=== PATIENT | female | born 1960 | race Caucasian/White ===

== ENCOUNTER → 2023-09-27 06:28 | Day surgery (SDC) | payer MEDICARE, SELFPAY | LOC: GI 06:28 | PROVIDERS: ATTENDING PHYSICIAN Internal Medicine | DX: Z12.11 Encounter for screening for malignant neoplasm of colon (principal); K64.9 Unspecified hemorrhoids; K57.30 Diverticulosis of large intestine without perforation or abscess without bleeding; Z86.010 Personal history of colon polyps; D12.2 Benign neoplasm of ascending colon | CPT/HCPCS: 45380; 88305 ==

== ENCOUNTER → 2024-03-28 07:56 | Outpatient (REF) | payer MEDICARE, SELFPAY | LOC: WDC 07:56 | PROVIDERS: ATTENDING PHYSICIAN Obstetrics & Gynecology; FAMILY PHYSICIAN Family Medicine | DX: Z12.31 Encounter for screening mammogram for malignant neoplasm of breast (principal) | CPT/HCPCS: 77063; 77067 ==

== ENCOUNTER → 2024-08-09 13:07 | Outpatient (REF) | payer MEDICARE, SELFPAY | LOC: RAD 13:07 | PROVIDERS: ATTENDING PHYSICIAN Physician Assistant; FAMILY PHYSICIAN Family Medicine | DX: R05.3 Chronic cough (principal) | CPT/HCPCS: 71046 ==

== ENCOUNTER → 2024-11-01 09:57 | Outpatient (REF) | payer MEDICARE, SELFPAY | LOC: RAD 09:57 | PROVIDERS: ATTENDING PHYSICIAN Physician Assistant; FAMILY PHYSICIAN Family Medicine | DX: M25.551 Pain in right hip (principal) | CPT/HCPCS: 73502 ==

== ENCOUNTER 2024-12-17 02:08 | Observation (INO) | payer MEDICARE, SELFPAY ==
[2024-12-16 21:33] VITALS: BP 126/72
[2024-12-16 21:44] LABS: Hematocrit 35.7 % (37.0-47.0); Hemoglobin 12.4 g/dL (12.0-16.0); Mean Corp Hgb Conc. 34.7 g/dL (33.0-37.0); Mean Corpuscular Volume 81.7 fL (81.0-99.0); Nucleated Red Blood Cells % 0 %; Platelet Count 236 10^3/uL (130-400); Red Cell Dist. Width 13.2 % (11.5-14.5)
[2024-12-16 21:57] LABS: ALT (SGPT) 18 U/L (0-35); AST (SGOT) 21 U/L (14-36); Albumin 4.5 g/dl (3.5-5.0); Alkaline Phosphatase 65 U/L (38-126); Blood Urea Nitrogen 18 mg/dl (7-17); Calcium 9.5 mg/dl (8.4-10.2); Carbon Dioxide 23 mmol/L (22-30); Chloride 109 mmol/L (98-107); Glucose 101 mg/dl (70-99); INR 0.94; PT 12.9 Sec (11.4-14.6); Potassium 3.6 mmol/L (3.5-5.1); Sodium 138 mmol/L (135-145); Total Protein 7.0 g/dl (6.3-8.2); eGFR > 60.00
[2024-12-16 22:00] VITALS: BP 111/57
[2024-12-16 22:18] VITALS: BMI 30.4
--- NOTE | 2024-12-16 22:23 | EDRN ---
Around 1100 pt felt tightness in her sternum which progressed throughout the day. Pt ate half a wrap for lunch and noted her chest felt worse afterwards. Pt watching golf after eating a salad and had to pull her bra off because she felt pressure
in her sternum. Pt unable to get comfortable lying in recliner. Pain radiates to R shoulder blade. Pt took 81mg aspirin. On the way to the ED, pt vomited. Pt has had nausea, none now. Pt clearing her throat repeatedly and says she was started
on omeprazole for possible gerd however she has not noted an improvement yet. No diaphoresis. Tightness in chest is intermittent. No abd pain, fever/chills.
[2024-12-16 23:00] VITALS: BP 121/71
[2024-12-16 23:11] LABS: Troponin I < 0.012 ng/ml
[2024-12-16] MEDS: LOW STRENGTH ASPIRIN 243 MG PO (23:53)
[2024-12-16] MEDS: PROTONIX IV 40 MG IV (23:54)
[2024-12-17] VITALS (7 sets, daily range): BP systolic 103–126; BP diastolic 61–78; BMI 29.8
[2024-12-17 00:11] LABS: Lipase 75 U/L (23-300)
--- NOTE | 2024-12-17 00:43 | ED.GENMED ---
History of Present Illness
General
Chief Complaint: Chest Pain
Source: patient
Exam Limitations: none
Time Seen by Provider: 12/16/24 23:26
History of Present Illness
History of Present Illness:
64-year-old female recurrent episodes of chest pressure substernal throughout the day. Comes and goes last 10 to 15 minutes. No shortness of breath some nausea and vomiting. No shearing pain no pleuritic pain. Currently asymptomatic remote
history of positive troponin but with clean coronaries in 2019
Past History
Past History
ED Past Medical History: Hypercholesterolemia and Hypothyroidism
ED Past Surgical History: None
Social History
Tobacco: Non-smoker
Alcohol: Occasional
Drug: None
Personal: (Same sex partner)
Living: with family
Employment: Employed
Family History
Family History: CAD
Review of Systems
Review of Systems
All Other Systems: Not applicable
Phy Exam
Physical Exam
Physical Exam:
GENERAL: Alert and oriented in no apparent distress
EYE: Orbits normal.
NECK: Supple, no significant adenopathy.
ENT: Pharynx without erythema
CARDIAC: Regular rate and rhythm without any obvious murmurs.
LUNGS: Clear breath sounds,normal
ABDOMEN: Soft, without focal tenderness or distention
NEUROLOGICAL: Alert and oriented , grossly non-focal
SKIN: Warm and dry, no rash or lesion, no discoloration, skin intact.
MUSCULOSKELETAL: No edema,no deformity.Good color
PSYCH: Normal and appropriate interaction.
Scores
Heart Score for Chest Pain Patients
STEMI patient?: No
History: Moderately Suspicious
ECG: Normal
Age: >/= 65 years
Risk Factors: 1 or 2 Risk Factors
Troponin: </= Normal Limit
Heart Score for Chest Pain Patients: 4
Heart Score Risk: 20.3% MACE over next 6 weeks
Course
Orders/Labs/Results
Orders:
Orders
12/16/24 21:27
Electrocardiogram (*1) Urgent
Reason for Study: Chest Pain
EKG- Treatment ONCE
12/16/24 21:34
Cardiac Monitoring- Treatment ONCE
IV Insert/Care/Rem.- Treatment PRN
O2 Therapy [RESP] Urgent
Titrate/Wean O2 to maintain O2 sat greater than (%): 90
Special Instructions: Maintain sats >/=90%
Pulse Ox/spot Check [RESP] Urgent
Quantity: 1
Special Instructions: ON ROOM AIR
12/16/24 21:39
Complete Blood Count/With Diff Urgent
Comprehensive Metabolic Panel Urgent
D-Dimer Urgent
Comment: ADD ON
Lipase Urgent
Comment: ADD ON
Prothrombin Time Urgent
12/16/24 22:38
Troponin I Urgent
12/16/24 23:40
Add On- LAB Urgent
Tests Added?: lipase
Aspirin Chewable [Low Strength Aspirin] 324 mg PO NOW STA
Pantoprazole [Protonix IV] 40 mg IV NOW STA
12/16/24 23:52
Aspirin Chewable [Low Strength Aspirin] 243 mg PO NOW STA
12/17/24 00:00
CR Chest - 2 Views Urgent
Reason For Exam: cp
12/17/24 01:50
Admit/Transfer Patient As Directed
Co-Sign Provider:
Level of Care: Observation services
Assign to:: Telemetry
Physician / Group: Denice Liao
Diagnosis: Chest pain
Reason for Telemetry: Chest Pain syndromes
Date to Stop Telemetry: 12/19/24
Time to Stop Telemetry: 11:00
12/17/24 01:51
PRN Pain Medication Management As Directed
May give lesser potent ordered pain med per pt: Yes
preference::
Protocol:: Medication orders for pain may be administered in a
manner that supports deferring to patient preference
when the pt is:
- Requesting an ordered lesser potent pain medication.
Least to most potent pain medications are defined
as: acetaminophen < NSAID < tramadol < opioids
(morphine, oxycodone, hydromorphone).
- Requesting a lesser dose of the same medication IF
ORDERED.
- Requesting a less intrusive route of administration
if both routes are prescribed by the provider (PO <
IV).
12/17/24 01:53
Code Status As Directed
Resuscitation Status: Full Code
12/17/24 03:05
Mag Hydrox/Al Hydrox/Simeth [Maalox] 30 ml PO Q4HPRN PRN
Nitroglycerin Sublingual [Nitrostat (Sublingual)] 0.4 mg SL [id number] PRN
12/17/24 03:05
Add On- LAB Urgent
Tests Added?: D dimer with next troponin
Echo 2D MMode Color/Doppler Routine
Reason for Study: chest pain
CARDIOLOGY CONSULT Routine
Consulting Provider: Tripp Alcala
Was physician already notified: No
Reason for consult: chest pain
Consult Notification Routine
Specialty to Notify: Cardiology
Date consulting provider notified: 12/17/24
Time consulting provider notified: 08:23
Notified:: Provider
Activity As Directed
Activity Level: Out of Bed-Early Mobility
INT (Intravenous Needle Therapy) As Directed
Comment: maintain peripheral IV access
Intake/ Output As Directed
Frequency: Per unit guidelines
Vital Signs As Directed
Frequency: q4h
Weight As Directed
Frequency: Daily
DX Deep Vein Thrombosis Video Routine
12/17/24 03:54
Cardiovascular Evaluation IN AM
Complete Blood Count/No Diff IN AM
Comprehensive Metabolic Panel IN AM
Glycohemoglobin (HgbA1c) Routine
Troponin I Q3H
Comment: at admit & Q3H for 3 total including ED draws, obtain ECG with each level
12/17/24 Breakfast
Cholesterol Lowering
At Your Request: Full Participation
Cholesterol Lowering: Sodium, 2 Gram
Levothyroxine [Synthroid] 100 mcg PO DAILY @ 0600
12/17/24 07:50
Troponin I Q3H
Comment: at admit & Q3H for 3 total including ED draws, obtain ECG with each level
12/17/24 08:00
Atorvastatin [Lipitor] 40 mg PO DAILY
Pantoprazole [Protonix] 40 mg PO DAILY
12/17/24 09:05
Electrocardiogram (*1) Q6H
Reason for Study: Chest Pain
Comment: at admission and Q3H for total of 3, to be done with each troponin
12/17/24 15:05
Electrocardiogram (*1) Q6H
Reason for Study: Chest Pain
Comment: at admission and Q3H for total of 3, to be done with each troponin
12/17/24 18:00
Enoxaparin Sodium [Lovenox] 40 mg SC QPM
12/19/24 11:00
DC Protocol for Telemetry ONCE
Abnormal Lab Results
12/16/24
21:39
Hct 35.7 L %
(37.0-47.0)
Absolute Neuts (auto) 6.8 H 10^3/uL
(1.4-6.5)
Chloride 109 H mmol/L
(98-107)
BUN 18 H mg/dl
(7-17)
Glucose 101 H mg/dl
(70-99)
12/16/24 21:39
12/16/24 21:39
Vital Signs
Initial and Last Documented VS:
Initial Vital Signs
Temp Pulse Resp BP Pulse Ox
98.2 F 69 16 126/72 98
12/16/24 21:33 12/16/24 21:33 12/16/24 21:33 12/16/24 21:33 12/16/24 21:33
Last Documented Vital Signs
Temp Pulse Resp BP Pulse Ox
98.1 F 67 18 106/65 96
12/17/24 16:06 12/17/24 17:00 12/17/24 16:06 12/17/24 16:08 12/17/24 16:06
*Pulse Oximetry
SaO2: 96
Oxygen Mode of Delivery: Room air
Patient hypoxic: no (98)
*Critical Care Note
Total Time (30-74mins, 75-104mins- exclusive of procedures): Not Applicable
ED Attending Note
-
Portions of this chart may have been created with voice recognition software.� Occasional wrong word or��sound alike� substitutions may have occurred due to the inherent limitations of voice recognition software.
Discharge Plan
Departure
Patient Disposition: Admit
Date of Disposition: 12/17/24
Time of Disposition: 01:19
Presentation/result/management discussed w/ accepting MD/DO: Hospitalist
Discharge Problem:
Intermittent chest pain
Interventions
Interventions:
*Risk Screen - Suicide Last Done: 12/16/24 21:33
*General Assessment Last Done: 12/16/24 21:33
*Neglect/Abuse Screening Last Done: 12/16/24 21:33
*ED- Fall Risk Assessment Last Done: 12/16/24 22:40
*Nursing Disposition Last Done: 12/17/24 03:00
ED- Cardiac Assessment Last Done: 12/16/24 22:44
Discharge Date and Time
Discharge Date/Time: 12/17/24 03:00
--- NOTE | 2024-12-17 01:46 | HPS.HSE ---
Family Physician
-
Family Physician: NOT KNOW UNKNOWN - PT DOES
Chief Complaint
-
Chest pain
History of Present Illness
This is a 64-year-old female with past medical history of hypothyroid, hyperlipidemia who presents to the emergency department with episode of chest pain.
Patient reported that symptoms began earlier in the day yesterday with substernal achy pain that seem to subside. However in the evening at around 8 PM she started having substernal chest pressure with radiation to the right scapula but not to
the's or neck or jaws. It was not associated with any shortness of breath or diaphoresis. However on being transported to the emergency department she had an episode of vomiting. Patient reported that pain occurred while she was at rest. She had
no palpitations at the time. She denied any diaphoresis. She did not feel short of breath. She denies any lower extremity swelling. She has had no cough fevers or chills.
Patient reports a prior history of chest pain about 4 years ago when she had significant palpitations at that time. She had cardiac cath and was found to have clean coronaries. She has not had a stress test since then. She reports compliance with
her medications including atorvastatin and levothyroxine.
In the emergency department patient was afebrile, blood pressure was 120/65 with a pulse of 66 and she was satting 96% on room air.
ECG sinus and nonischemic.
CBC is currently unremarkable
Electrolytes BUN/creatinine were all within the normal range.
Chest x-ray was clear.
Initial troponin was 0.01
Medical History
Past Medical History
Past Medical History: Reports Hypercholesterolemia and Hypothyroidism
Past Surgical History: Reports Orthopedic
Social History
Tobacco: Non-smoker
Alcohol: Occasional
Drug: None
Living: With Family
Family History
Family History: CAD
Allergies / Home Medications
Allergies reflects when Allergies were last updated in [employer].
Home Medications with original date entered in [employer]
Allergy/Medication List:
Allergies
Allergy/AdvReac Type Severity Reaction Status Date / Time
cefuroxime axetil (From Allergy itching of Verified 12/16/24 22:19
Ceftin) hands
codeine (Codeine) Allergy itching & Verified 12/16/24 22:19
hives
orange juice Allergy Unknown Verified 12/16/24 22:19
whey Allergy Unknown Verified 12/16/24 22:19
amoxicillin trihydrate (From AdvReac diarrhea Verified 12/16/24 22:19
Augmentin)
Home Medications
glucosamine 750 kj-yphbymrnor-jle no.1 625 mg-C 30 qs-rkgh-qjgk tablet 1 ea PO DAILY 11/01/11
atorvastatin 40 mg tablet 40 mg PO DAILY 06/14/18
cholecalciferol (vitamin D3) 50 mcg (2,000 unit) tablet 3,000 unit PO DAILY 06/14/18
guselkumab 100 mg/mL subcutaneous pen injector (Tremfya Pen) 100 mg SC Q8W 12/16/24
levothyroxine 100 mcg tablet 100 mcg PO DAILY 12/16/24
lutein 10 mg tablet 10 mg PO DAILY 12/16/24
omeprazole 1 cap PO DAILY 12/16/24
Review of Systems
-
Constitutional: Reports No Symptoms
EENT: Reports No Symptoms
Respiratory: Reports No Symptoms
Cardiac: Reports Chest Pain
Abdomen/GI: Reports No Symptoms
: Reports No Symptoms
Musculoskeletal: Reports No Symptoms
Skin: Reports No Symptoms
Neurological: Reports No Symptoms
Endocrine: Reports No Symptoms
Hematologic/Lymphatic: Reports No Symptoms
Psych: Reports No Symptoms
Physical Exam
Vital Signs
Vital Signs
Temp Pulse Resp BP Pulse Ox
98.2 F 66 14 118/65 96
12/16/24 21:33 12/17/24 01:00 12/17/24 01:00 12/17/24 01:00 12/17/24 00:44
Physical Exam
General: Well Developed, Well Nourished and No Apparent Distress
HEENT: NormoCephalic, Moist mucous membranes and Atraumatic
Respiratory: Clear
Cardiac: S1/S2 and Regular Rhythm; No Murmur or Rub
GI: Soft, Non Tender, Non Distended and Normal Bowel Sounds; No Organomegaly
Rectal: Deferred by Provider
Musculoskeletal: No Clubbing, No Cyanosis and No Edema
Skin: No Rash
Neuro: Nonfocal/grossly intact
Laboratory Results
-
12/16/24 21:39
12/16/24 21:39
Laboratory Results
PT 12.9 Sec (11.4-14.6) 12/16/24 21:39
INR 0.94 12/16/24 21:39
Total Bilirubin 0.6 mg/dl (0.2-1.3) 12/16/24 21:39
AST 21 U/L (14-36) 12/16/24 21:39
ALT 18 U/L (0-35) 12/16/24 21:39
Alkaline Phosphatase 65 U/L (38-126) 12/16/24 21:39
Troponin I < 0.012 ng/ml 12/16/24 22:38
Lipase 75 U/L (23-300) 12/16/24 21:39
Data Reviewed
-
Diagnostic Radiology: Image Personally Visualized and interpreted
Medical Tests (Nuc Med, Echo, EKG etc): Image Personally Visualized and interpreted
Old Records: Reviewed
Impression/Plan
-
IMPRESSION:
64-year-old with history of hyperlipidemia and hypothyroid presenting with recurrent chest pain, negative ECG, negative initial troponin and currently chest pain-free. Patient reported substernal pressure radiating to the right scapula and
associated with vomiting.
PLAN:
Chest pain -typical location, moderate to risk factors
-Admit to telemetry observation
-NTG as needed for chest pain
-status post aspirin full dose, continue 81 mg daily
-Antiemetics and Maalox as needed
-Cycle cardiac enzymes every 3 hours
- check d-dimer
-Echo in a.m.
-Cardiovascular panel and A1c
-Cardiology consult
Treat empirically for GERD. S/p IV protonix. Continue ppi po
DVT prophylaxis�Lovenox subcu
CODE STATUS�full code
[2024-12-17 03:29] LABS: D-Dimer 0.43 ug/mlFEU (0.00-0.50)
[2024-12-17 04:20] LABS: Hematocrit 32.8 % (37.0-47.0); Hemoglobin 11.3 g/dL (12.0-16.0); Mean Corp Hgb Conc. 34.5 g/dL (33.0-37.0); Mean Corpuscular Volume 82.4 fL (81.0-99.0); Platelet Count 201 10^3/uL (130-400); Red Cell Dist. Width 13.2 % (11.5-14.5)
[2024-12-17 04:31] LABS: ALT (SGPT) 16 U/L (0-35); AST (SGOT) 19 U/L (14-36); Albumin 3.9 g/dl (3.5-5.0); Alkaline Phosphatase 57 U/L (38-126); Blood Urea Nitrogen 16 mg/dl (7-17); Calcium 9.1 mg/dl (8.4-10.2); Carbon Dioxide 24 mmol/L (22-30); Chloride 113 mmol/L (98-107); Estimated Creatinine Clearance 105 ml/min; Glucose 101 mg/dl (70-99); HDL Cholesterol 64 mg/dl; LDL Cholesterol, Calculated 83 mg/dl; Potassium 4.1 mmol/L (3.5-5.1); Sodium 140 mmol/L (135-145); Total Protein 6.1 g/dl (6.3-8.2); Very Low Density Lipoprotein 9 mg/dl (0-30); eGFR > 60.00
--- NOTE | 2024-12-17 04:39 | PTCARENOTE ---
Received pt from ER into 2254. Pt is AAOx3 SR on the monitor denies cp vss. EKG and labs done. Pt was oriented to call [facility] and IVU policies and procedures. Call [facility] within reach.
[2024-12-17 04:44] LABS: Troponin I < 0.012 ng/ml
[2024-12-17] MEDS: SYNTHROID 100 MCG PO (06:12)
[2024-12-17] MEDS: PROTONIX 40 MG PO (07:53)
[2024-12-17] MEDS: LIPITOR 40 MG PO (07:53)
--- NOTE | 2024-12-17 08:38 | W.PN.HOSP.TC ---
Today's Communication/Plan
-
pending further cardiology plan
Assessment / Plan
Assessment / Plan
64yo F with HLD, GERD, hypothyroidism, psoriasis came with substernal chest pressure radiating to the R back started a day before admission, not related to exertion. Had similar episodes before. S/P cardiac cath in 2019 with non-occlusive CAD, was
recommended ASA since then, but stopped taking it with concern for Hx of vitreous/retinal hemorrhage. Troponin undetectable, EKG without ST or T-wave changes that would indicate ACS.
A/P:
#Substernal pressure
Serial trop
Cardiology
Echo
ASA, statin
LDL 83
telemetry w/o clinically significant arrhythmia
Recommend outpatient EGD, already known to (s/p colonoscopy in 2023)
#Psoriatic arthritis
#GERd
#Hypothyroidism
#HLD
cont home meds
check TSH
DVT ppx Lovenox
Full code
I have spent at least 58min reviewing chart, test results, communication with consultants and providing direct patient care
Anticipated Discharge: 24 - 48 hours
Subjective/Interval History
-
Date of Service: December 17, 2024
Objective Data
-
Labs:
Laboratory Results
12/16/24 12/17/24
21:39 03:54
WBC 9.5 7.9
Hgb 12.4 11.3 L
Hct 35.7 L 32.8 L
Plt Count 236 201
PT 12.9
INR 0.94
Sodium 138 140
Potassium 3.6 4.1
Chloride 109 H 113 H
Carbon Dioxide 23 24
BUN 18 H 16
Creatinine 0.7 0.6
Glucose 101 H 101 H
Calcium 9.5 9.1
Total Bilirubin 0.6 0.9
AST 21 19
ALT 18 16
Alkaline Phosphatase 65 57
Vital Signs:
Vital Signs
Temp Pulse Resp BP Pulse Ox
98.2 F 63 16 111/67 98
12/17/24 07:12 12/17/24 07:12 12/17/24 07:12 12/17/24 07:12 12/17/24 07:22
Review of Systems
-
History Source: Patient
All other systems: Reviewed and negative
Physical Exam
-
General: No Apparent Distress
HEENT: Normocephalic
Respiratory: Clear to Auscultation
Cardiac: Regular Rhythm; Negative Murmur
GI: Soft, Nontender and Nondistended
Musculoskeletal: No Clubbing, No Cyanosis and No Edema
Neuro: Awake, Alert, Oriented and AO x 3
Psych: Calm
[2024-12-17 08:40] LABS: Troponin I < 0.012 ng/ml
--- NOTE | 2024-12-17 08:43 | CON.CAR ---
Addendum entered and electronically signed by Alexandru Mireles MD 12/17/24 18:03:
I saw and examined the patient.
Dr. Gamez's note was reviewed and I agree with the note.
Comment:
64-year-old female with hyperlipidemia, hypothyroidism, psoriasis and family history of coronary artery disease who presents to the ER with chest pain. She reports that yesterday she developed chest pain around 11 AM. It was on and off all day but
then around 8 PM became persistent so she decided to come to the ER. She vomited on the way to the ER. For the past few weeks she has been dealing with reflux and working on this with her PCP. She is an avid golfer and golfs twice a week. Walks
18 holes. When she last played on she was more winded than usual although she was attributing this to heat and deconditioning since she had not been playing much due to rain. Her chest pain resolved overnight and she is now asymptomatic.
She is currently coughing because she just had breakfast and has been having a lot of coughing after eating.
Physical exam notable for regular rate and rhythm with no murmurs, rubs, or gallops, clear lungs to auscultation bilaterally, and no lower extremity edema
Troponins are undetectable x3, creatinine 0.6, TC 156 TG 49 LDL 83 HDL 64, TSH 1.04
ECG: NSR, poor R wave progression, unchanged on serial checks
TTE 12/17/2024: Normal LVEF, no regional wall motion abnormalities, no valvular disease
[facility] 2019: Normal coronary arteries
Chest pain could be GERD versus angina. I favor GERD given her lack of troponin elevation despite hours of chest pain, normal TTE, nonischemic ECG as well as her cough after eating and improvement with GI meds. We will get an outpatient stress
test to rule out obstructive CAD. I have advised her to avoid moderate to high intensity activity until this is completed. We will see her in the office for follow-up.
Original Note:
Consultation
Consultation Request
Date/Time Consultation Requested: 12/17/2024 03:05
Date/Time Consultation Performed: 12/17/2024 08:10am
Requesting Provider: Chan Pelletier
Performing Provider: Dr. Alexandru Mireles
Reason for Consultation: Chest pain
Medical History
-
Chief Complaint: Chest Pain
History of Present Illness:
64-year-old female with past medical history of hyperlipidemia, hypothyroidism, plaque psoriasis, depression, chronic cough (suspected to be GERD by PCP) and vitelliform macular dystrophy presented to the ED with chest pain. Chest pain pain started
around 11 AM yesterday after doing some light gardening. Throughout the day she had 5 to 10-minute episodes of substernal chest pain described as pressure that came and went until around 8 PM. Around 8, the pain became constant, radiated to the
back of the right scapula, 9 out of 10 pain. At that point she asked her friend to take her to the emergency room. She endorsed vomiting in the car on the way over. She denied any shortness of breath, diaphoresis, heart palpitations.
She has had 1 similar episode in the past after 2 hours of intense physical exertion in the garden in 2019. She came in and got a cardiac cath 06/[address] Pedersen which was normal. They suspected vasospasm and suggested long-term baby aspirin
rather than calcium channel marry as they suspected to drop her BP. She followed up with Dr. Pugh in the outpatient setting who agreed with plan. She has not had a follow-up since then. She did not continue taking her ASA due to perceived
risk of a bleed into her eye due to the macular dystrophy.
Of note, patient has also been worked up for chronic cough secondary to suspected GERD. She was started on omeprazole 2 weeks ago by primary care physician and has had episodes of heartburn. Yesterday, she did not eat anything out of the ordinary.
For lunch she had half a chicken sandwich and she did not eat much for dinner due to the pain.
In the ED, BP 126/72, HR 71, Cr 0.6, trop <0.012, EKG normal sinus rythm with PACs, LDL 83, hga1c pending. Last hga1c 10/2022 5.3. Last echo 11/2020 LVEF 60-65% with no regional wall abnormalities. She was given aspirin 243, admitted for
observation and cardiology was consulted. She did not require any nitro for pain overnight and trop x3 (-) one still pending.
Past Medical History
Past Medical History: Hypothyroidism and Other (Hyperlipidemia, plaque psoriasis, depression, chronic cough, vitelliform macular dystrophy)
Past Surgical History: Orthopedic and Other (Bilateral cataract surgery, right eye macular hole repair)
Social History
Tobacco: Non-Smoker
Alcohol: None
Drug: None
Employment: Retired
Family History
Family History: Other (3 brothers -A-fib, bypass surgery, mom-diabetes, multiple stents, dad sextuple bypass)
Allergies / Home Medications
Allergy/AdvReac Type Severity Reaction Status Date / Time
cefuroxime axetil (From Allergy itching of Verified 12/16/24 22:19
Ceftin) hands
codeine (Codeine) Allergy itching & Verified 12/16/24 22:19
hives
orange juice Allergy Unknown Verified 12/16/24 22:19
whey Allergy Unknown Verified 12/16/24 22:19
amoxicillin trihydrate (From AdvReac diarrhea Verified 12/16/24 22:19
Augmentin)
�Medication �Instructions �Recorded �Confirmed �Type
glucosamine 750 rq-apnvlmenuo-qyv 1 ea PO DAILY 11/01/11 12/16/24 History
no.1 625 mg-C 30 [id number]-icmz
tablet
atorvastatin 40 mg tablet 40 mg PO DAILY 06/14/18 12/16/24 History
cholecalciferol (vitamin D3) 50 3,000 unit PO DAILY 06/14/18 12/16/24 History
mcg (2,000 unit) tablet
guselkumab 100 mg/mL subcutaneous 100 mg SC Q8W 12/16/24 12/16/24 History
pen injector (Tremfya Pen)
levothyroxine 100 mcg tablet 100 mcg PO DAILY 12/16/24 12/16/24 History
lutein 10 mg tablet 10 mg PO DAILY 12/16/24 12/16/24 History
omeprazole 1 cap PO DAILY 12/16/24 12/16/24 History
Review of Systems
-
History Source: Patient
Constitutional: No Symptoms
EENT: No Symptoms
Respiratory: Cough
Cardiac: Chest Pain (substernal pressure 1-2/10)
Abdomen/GI: No Symptoms
Neurological: No Symptoms
Physical Exam
Vital Signs
Temp Pulse Resp BP Pulse Ox
98.2 F 63 16 111/67 98
12/17/24 07:12 12/17/24 07:12 12/17/24 07:12 12/17/24 07:12 12/17/24 07:22
Lab Results
12/17/24 03:54
12/17/24 03:54
Troponin I < 0.012 ng/ml 12/17/24 07:50
Physical Exam
General: Well Developed and No Apparent Distress
Respiratory: Clear
Cardiac: S1/S2 and Regular Rhythm
GI: Soft, Non Tender, Non Distended and Normal Bowel Sounds
Skin: Warm
Neuro: AO x 3
Psych: Calm
Impression / Plan
-
64-year-old female with past medical history of hyperlipidemia, hypothyroidism, plaque psoriasis, depression, chronic cough presents to the ED with chest pain.
Chest pain
- GERD vs vasospasm - now slight sub-sternal chest pressure that feels 'acidic' this am after breakfast with associated cough
-EKG non-ischemic - sinus rhythm with PACs
-Troponin x3 (-) one pending
-No overnight events on tele
-Last echo 11/2020 LVED 60-65% no regional wall abnormalities
-06/[address] Pedersen normal coronary arteries
-LDL 83
-Hga1c pending but last hga1c 10/2022 5.3
-Echo pending - if results normal will discharge pt with f/u for outpatient cardiac stress test.
-Could be GERD, but need to rule out ischemic etiology. Strong family hx makes it more likely.
-Discussed increasing her atorvastatin and she would prefer lifestyle modification at the moment and check in the next few months
-Will consider CCB low dose pending outpatient stress test results
-Pt concerned about ASA due to hx vitelliform macular dystrophy in which blood thinners may increase her risk of a bleed. Will start regular ASA pending stress test results.
HLD
-Cont atorvastatin 40 - LDL 83
-Pt stated LDL has been downtrending with outpatient PCP and would like to try lifestyle modification before increasing dose
Plaque psoriasis
-Risk factor for CAD
-Cont tremfya
DVT lovenox
Full Code
06/15/2018 Cardiac cath report
CONCLUSIONS
1: Normal left ventricular function with EF 64%
2: Normal coronary arteries
3. Given the very minimal troponin elevation with single episode of chest discomfort, I favor simply adding aspirin 81 mg daily to her regimen rather than treating for possible coronary spasm. Her systolic blood pressure typically runs 100 or less
and I believe she will have issues with hypotension if we treated with a calcium channel marry.
[2024-12-17 10:19] LABS: Glycohemoglobin (HgbA1c) 5.4 % (4.0-5.6)
[2024-12-17 10:38] LABS: TSH 1.04 uIU/ml (0.47-4.68)
--- NOTE | 2024-12-17 15:15 | CM ---
spoke to pt in room, [employer], lives withher in a 2 story home with 2 steps to enter. she denies any dc plannin gneeds or dme's. plan is for dc to home when medically stable.
--- NOTE | 2024-12-17 17:44 | W.DCSUMMARY ---
Discharge Summary
Discharge Data
Date of Admission: 12/17/24
Date of Discharge: 12/17/24
-
Pending Results: No
Hospital Course
64yo F with HLD, GERD, hypothyroidism, psoriasis came with substernal chest pressure radiating to the R back started a day before admission, not related to exertion. Had similar episodes before. S/P cardiac cath in 2019 with non-occlusive CAD, was
recommended ASA since then, but stopped taking it with concern for Hx of vitreous/retinal hemorrhage. Troponin undetectable, EKG without ST or T-wave changes that would indicate ACS. Echo Normal biventricular size and systolic function without
regional wall motion
abnormality. No significant valvular disease. No significant change since the prior study of 11/26/2020. As per cardiology - patient will need outpatient stress test. Medically stable for d/c
I have spent at least 58min reviewing chart, test results, communication with consultants and providing direct patient care
Patient was managed for:
#Substernal pressure
#Psoriatic arthritis
#GERd
#Hypothyroidism
#HLD
Discharge Plan
-
Patient Disposition: Home (Routine Discharge)
Discharge Diagnosis/Procedures: chest pressure
Diet: Low Cholesterol
Referrals:
Tripp Alcala MD [Active, Cardiology] - in less than 1 week
Referral Note: Schedule stress test
UNKNOWN - PT DOES,NOT KNOW [Family Provider]
Evita Florez DO [Active, Gastroenterology] - in two to four weeks
Referral Note: EGD
Prescriptions:
New
aspirin 81 mg tablet
81 mg PO DAILY Qty: 30 0RF
Continued
[id number] 1 EACH tablet
1 ea PO DAILY
atorvastatin 40 MG tablet
40 mg PO DAILY
cholecalciferol (vitamin D3) 2,000 UNITS tablet
3,000 unit PO DAILY
levothyroxine 100 mcg Tablet
100 mcg PO DAILY
lutein 10 mg Tablet
10 mg PO DAILY
omeprazole
1 cap PO DAILY
Patient Comments:
new medication, pt does not know mg
Tremfya Pen 100 mg/mL Pen Injector
100 mg SC Q8W
Discharge Orders:
Discharge Patient (As Directed); Ordered 12/17/24
Ordered By: Bc Angelo
Care Plan Goals
Care Plan Goals:
Problem: Readiness for enhanced knowledge related to diagnosis and treatment plan
Goal: Understand your diagnosis and treatment plan needs, including medications if applicable.
Instructions: Know your diagnosis, underlying causes and treatment plan options, including medications if applicable. Consult with your health care team to learn about your diagnosis and treatment plan, including medications if applicable.
Discharge Date and Time
Print Language: WELSH
--- NOTE | 2024-12-17 18:16 | PTCARENOTE ---
IV and tele removed. Discharge instructions reviewed w/ pt and verbalizes understanding. Belongings collected and sent home w/ pt. Escorted via WC and staff assist to home.
== END 2024-12-17 18:17 | disposition home or self-care (01) ==
LOC: IVU 02:08
PROVIDERS: Emergency Medicine; Nurse Practitioner Gerontology; ADMITTING PHYSICIAN Internal Medicine; ATTENDING PHYSICIAN Internal Medicine; EMERGENCY PHYSICIAN Emergency Medicine; OTHER PHYSICIAN Student in an Organized Health Care Education/Training Program
DX: K21.9 Gastro-esophageal reflux disease without esophagitis (principal); E03.9 Hypothyroidism, unspecified; E78.00 Pure hypercholesterolemia, unspecified; I25.10 Atherosclerotic heart disease of native coronary artery without angina pectoris; L40.0 Psoriasis vulgaris; L40.50 Arthropathic psoriasis, unspecified; Z79.899 Other long term (current) drug therapy; Z82.49 Family history of ischemic heart disease and other diseases of the circulatory system
CPT/HCPCS: 71046; 80053; 80061; 83036; 83690; 84443; 84484; 85025; 85027; 85379; 85610; 93005; 93306; 99285; G0378

== ENCOUNTER → 2024-12-26 12:29 | Outpatient (REF) | payer MEDICARE, SELFPAY | LOC: RCS 12:29 | PROVIDERS: ATTENDING PHYSICIAN Student in an Organized Health Care Education/Training Program; FAMILY PHYSICIAN Family Medicine | DX: R07.89 Other chest pain (principal) | CPT/HCPCS: 93017; 93350 ==

== ENCOUNTER → 2025-02-14 06:45 | Outpatient (REF) | payer MEDICARE, SELFPAY | LOC: HWRAD 06:45 | PROVIDERS: ATTENDING PHYSICIAN Internal Medicine; FAMILY PHYSICIAN Family Medicine | DX: R10.13 Epigastric pain (principal) | CPT/HCPCS: 76700 ==

== ENCOUNTER → 2025-03-29 08:11 | Outpatient (REF) | payer MEDICARE, SELFPAY | LOC: WDC 08:11 | PROVIDERS: ATTENDING PHYSICIAN Obstetrics & Gynecology; FAMILY PHYSICIAN Family Medicine | DX: Z12.31 Encounter for screening mammogram for malignant neoplasm of breast (principal) | CPT/HCPCS: 77063; 77067 ==

== ENCOUNTER 2025-04-08 06:27 | Day surgery (SDC) | payer MEDICARE, SELFPAY | END 2025-04-08 10:50 | disposition home or self-care (01) | LOC: GI 06:27 | PROVIDERS: ATTENDING PHYSICIAN Internal Medicine; FAMILY PHYSICIAN Family Medicine | DX: R10.13 Epigastric pain (principal); K44.9 Diaphragmatic hernia without obstruction or gangrene | CPT/HCPCS: 43239; 88305; 88342 ==

== ENCOUNTER → 2025-05-06 07:31 | Outpatient (REF) | payer MEDICARE, SELFPAY | LOC: HWRAD 07:31 | PROVIDERS: ATTENDING PHYSICIAN Physician Assistant; FAMILY PHYSICIAN Family Medicine; REFERRING PHYSICIAN Dermatology Dermatopathology | DX: Z13.820 Encounter for screening for osteoporosis (principal); Z78.0 Asymptomatic menopausal state | CPT/HCPCS: 77080 ==